=== PATIENT | male | born 1960 | race Caucasian/White ===

== ENCOUNTER 2016-09-30 08:15 | Day surgery (SDC) | payer MEDICARE, MEDICAID ==
[~2016-09-30] VITALS: Ht 193 cm; Wt 131.5 kg
[~2016-09-30 08:15] MED LIST: ALBU18 IN; ALBUAER3 IN; AML5T OR; AMLO5TAB2 PO; AZEL137S7; BIOTCAP2 PO; CALC-243 PO; CHOL1TAB28 PO; CYCL10TA3 OR; CYCL5TAB PO; DEXL60CA3 PO; FINA5TAB4 PO; FUR40T OR; FURO40TA4 PO; GABA-497 PO; HYDR-4663 PO; IODIXANOL 320MG/ML 100ML BTL IV ONE; LACT10SO3 PO; LIDOCAINE 2%HCL (LOCAL ANESTH.) INJ 20ML MDV ONE; LOSA50TA6 PO; MONT10TA34 PO; MULT-569 PO; NOR10T PO; OMEP20CA74 PO; POTA8TAB2 PO; PREG150C PO; PROM25TA5 PO; SIMV10TA84 PO; TAMS0.4C36 PO; TEMA30CA PO; TIOT1AER IN; ZOLP10TA PO
[2016-09-30] MEDS ORDERED: MIDAZOLAM HCL 1MG/1ML-2 ML VIAL ONE (09:24)
[2016-09-30] MEDS ORDERED: methylPREDNISolone SOD SUCC 125 MG/2 ML VL ONE (09:24)
[2016-09-30] MEDS ORDERED: fentaNYL CITRATE 100 MCG/2 ML VL ONE (09:24)
[2016-09-30] MEDS ORDERED: VERAPAMIL 2.5MG/ML INJ 2ML VIAL IV ONE (09:24)
[2016-09-30] MEDS ORDERED: diphenhdrAMINE HCL 50 MG/1 ML VL ONE (09:24)
[2016-09-30] MEDS ORDERED: SODIUM CHL 0.9% 0 ML ONE (09:25)
[2016-09-30] MEDS ORDERED: ANGIOMAX 250 MG VIAL IV ONE (09:25)
[2016-09-30] MEDS ORDERED: FAMOTIDINE (10MG/ML) 2ML VL IV ONE (09:26)
[2016-09-30] MEDS ORDERED: EPTIFIBATIDE INJ (2MG/ML) 10ML VIAL IV ONE (09:26)
[2016-09-30] MEDS ORDERED: HEPARIN SODIUM (PORCINE) 5000 UNITS/ML 1ML VIAL ONE (09:55)
== END 2016-09-30 13:20 | disposition home or self-care (01) ==
LOC: CATH 08:15
PROVIDERS: ATTEND Internal Medicine
DX: R94.39 Abnormal result of other cardiovascular function study (principal); J44.9 Chronic obstructive pulmonary disease, unspecified; Z87.891 Personal history of nicotine dependence
CPT/HCPCS: 93458; C1769; C1894; J1200; J1644; J2250; J2930; J3010; J3490; J7030; Q9967